=== PATIENT | male | born 2000 | race Two or more races ===

== ENCOUNTER 2020-07-23 03:33 | Emergency (ER) | payer OTHER ==
[~2020-07-23] VITALS: Ht 177.8 cm; Wt 59.0 kg
[2020-07-23 04:11] LABS: Basophils # (auto) 0 10 ^3/uL (0-0.2); Basophils % (auto) 0.2 % (0.0-2.0); Eosinophils # (auto) 0.2 10 ^3/uL (0-0.8); Eosinophils % (auto) 2.3 % (0.0-7.0); Hematocrit 43.8 % (41.0-53.0); Lymphocytes # (auto) 2.8 10 ^3/uL (0.4-5.4); Lymphocytes % (auto) 39.9 % (10.0-50.0); Mean Corpuscular Hemoglobin 30.9 pg (28.0-32.0); Mean Corpuscular Hgb Conc. 34.2 g/dL (32.0-36.0); Mean Corpuscular Volume 90.5 fL (80.0-100.0); Monocytes # (auto) 0.9 10 ^3/uL (0-1.3); Monocytes % (auto) 12.8 % (0.0-12.0); Neutrophils # (auto) 3.1 10 ^3/uL (1.6-8.6); Neutrophils % (auto) 44.8 % (37.0-80.0); Nucleated Red Blood Cells % 0.1 %; Platelet Count (auto) 187 10^3/uL (140-450); Red Blood Cells 4.84 10^6/uL (4.5-5.90); Red Cell Distribution Width 13.4 % (11.8-14.3); White Blood Cell 6.9 10^3/uL (4.4-10.8)
[2020-07-23 04:22] LABS: Albumin 4.1 g/dL (3.4-5.0); Calcium 8.9 mg/dL (8.5-10.1); Potassium 4.4 mmol/L (3.5-5.1)
[2020-07-23 04:23] LABS: Salicylate 2.3 mg/dL (2.8-20.0)
[2020-07-23 04:24] LABS: Acetaminophen < 2.0 ug/mL (10-30)
[2020-07-23 04:26] LABS: Bilirubin, Total 0.3 mg/dL (0.2-1.0); Total Protein 7.5 g/dL (6.4-8.2)
[2020-07-23 04:28] LABS: Amphetamine Screen, Urine NEGATIVE (NEGATIVE); Barbiturate Scree,Urine NEGATIVE (NEGATIVE); Benzodiazephine Screen, Urine NEGATIVE (NEGATIVE); Cannabinoid Screen, Urine POSITIVE (NEGATIVE); Cocaine Screen, Urine NEGATIVE (NEGATIVE); Opiate Scree,Urine NEGATIVE (NEGATIVE); Phencyclidine Screen, Urine NEGATIVE (NEGATIVE)
[2020-07-23] MEDS ORDERED: LORazepam 0.5 MG TAB PO ONE (07:45)
[2020-07-23 08:02] VITALS: BP 138/102
== END 2020-07-23 08:17 | disposition home or self-care (01) ==
LOC: ER 03:33
DX: F41.9 Anxiety disorder, unspecified (principal); F12.90 Cannabis use, unspecified, uncomplicated; F17.210 Nicotine dependence, cigarettes, uncomplicated
CPT/HCPCS: 36415; 80053; 80307; 80320; 80329; 85025; 93005

== ENCOUNTER 2021-06-19 21:52 | Emergency (ER) | payer OTHER ==
[~2021-06-19] VITALS: Ht 177.8 cm; Wt 68.0 kg
[2021-06-20] MEDS: diphenhdrAMINE HCL 50 MG/1 ML VL ONE (00:08)
[2021-06-20] MEDS: LORazepam 2MG/ML-1ML VIAL ONE (00:09)
[2021-06-20] MEDS: LORazepam 2MG/ML-1ML VIAL IV ONE (00:15)
[2021-06-20] MEDS: diphenhdrAMINE HCL 50 MG/1 ML VL IV ONE (00:15)
[2021-06-20 01:03] LABS: Basophils # (auto) 0 10 ^3/uL (0-0.2); Basophils % (auto) 0.2 % (0.0-2.0); Eosinophils # (auto) 0.1 10 ^3/uL (0-0.8); Eosinophils % (auto) 0.6 % (0.0-7.0); Hematocrit 43.4 % (41.0-53.0); Hemoglobin 14.6 g/dL (13.5-17.5); Lymphocytes # (auto) 4.1 10 ^3/uL (0.4-5.4); Lymphocytes % (auto) 28.8 % (10.0-50.0); Mean Corpuscular Hemoglobin 30.6 pg (28.0-32.0); Mean Corpuscular Hgb Conc. 33.7 g/dL (32.0-36.0); Mean Corpuscular Volume 90.6 fL (80.0-100.0); Monocytes # (auto) 1.8 10 ^3/uL (0-1.3); Monocytes % (auto) 12.9 % (0.0-12.0); Neutrophils # (auto) 8.1 10 ^3/uL (1.6-8.6); Neutrophils % (auto) 57.5 % (37.0-80.0); Nucleated Red Blood Cells % 0.2 %; Red Blood Cells 4.79 10^6/uL (4.5-5.90); Red Cell Distribution Width 15.1 % (11.8-14.3)
[2021-06-20 01:32] LABS: Albumin 4.1 g/dL (3.4-5.0); Anion Gap 11 (5-15); BUN/Creatinine Ratio 16.7; Blood Alcohol < 3.0 mg/dL (0-5); Blood Urea Nitrogen 15 mg/dL (7-18); Calcium 8.7 mg/dL (8.5-10.1); Carbon Dioxide 26 mmol/L (21-32); Chloride 108 mmol/L (98-107); GFR African American 138 mL/min; GFR Non-African American 114 mL/min; Glucose 95 mg/dL (74-106); Potassium 3.9 mmol/L (3.5-5.1); Sodium 145 mmol/L (136-145)
[2021-06-20 01:34] LABS: Acetaminophen < 2.0 ug/mL (10-30); Alanine Aminotransferase 24 U/L (16-61); Alkaline Phosphatase 90 U/L (45-117); Aspartate Aminotransferase 19 U/L (15-37); Salicylate 2.4 mg/dL (2.8-20.0); Total Protein 7.1 g/dL (6.4-8.2)
[2021-06-20 09:00] VITALS: BP 90/49
== END 2021-06-20 10:48 | disposition left against medical advice (07) ==
LOC: ER 21:52
DX: R45.851 Suicidal ideations (principal); F17.210 Nicotine dependence, cigarettes, uncomplicated; F12.10 Cannabis abuse, uncomplicated; F15.10 Other stimulant abuse, uncomplicated; Z53.29 Procedure and treatment not carried out because of patient's decision for other reasons
CPT/HCPCS: 36415; 80053; 80320; 80329; 85025; 96374; 96375; 99285; J1200; J2060